=== PATIENT | male | born 1940 | race Hispanic/Latino ===

== ENCOUNTER 2017-05-29 14:04 | Outpatient (CLI) | payer MEDICARE, OTHER ==
--- NOTE | 2017-05-30 09:32 | XRay Report ---
Pelvis and bilateral hips: History: Left hip pain. Findings: Mild arthritic changes superior aspect of right and left hip could be more pronounced in the left hip joint. No fracture or soft tissue calcification. No lytic or blastic lesions. Impression: Arthritic changes bilaterally being more pronounced and left hip.
== END 2017-05-29 14:05 | disposition home or self-care (01) ==
LOC: SPVIMAG 14:04
PROVIDERS: ATTEND Internal Medicine
DX: M16.0 Bilateral primary osteoarthritis of hip (principal)
CPT/HCPCS: 73521